=== PATIENT | male | born 2000 | race African-American/Black ===

== ENCOUNTER 2021-04-12 19:30 | Emergency (ER) | payer SELFPAY ==
[~2021-04-12] VITALS: Ht 177.8 cm; Wt 64.0 kg
[2021-04-12] MEDS ORDERED: OLANZAPINE 10 MG/VIAL IM ONE (20:00)
[2021-04-12 20:30] VITALS: BP 129/89
== END 2021-04-12 21:20 | disposition left against medical advice (07) ==
LOC: ER 19:30
DX: F25.1 Schizoaffective disorder, depressive type (principal)
CPT/HCPCS: 96372; 99283; J3490